=== PATIENT | female | born 1940 | race Caucasian/White ===

== ENCOUNTER 2022-05-23 11:07 | Emergency (ER) | payer MEDICARE, SELFPAY ==
[2022-05-23 11:13] VITALS: BP 123/60; PULSE 70; RESP 18; TEMP 36.8; O2SAT 98
--- NOTE | 2022-05-23 12:16 | DI.CT_ITS ---
Exam(s) CT LUMBAR SPINE RECONS CT ABDOMEN PELVIS WO EXAM: CT ABDOMEN PELVIS WO CLINICAL HISTORY: Constipation, trauma, right back pain. TECHNIQUE: Imaging Protocol: Axial computed tomography images with coronal and sagittal reformatted images were created and reviewed. Axial, coronal and sagittal reconstructions of the lumbar spine wer e also performed utilizing bone algorithm. Oral: yes 50 cc Omnipaque. COMPARISON: CT CT LUMBAR SPINE RECONS from 05/23/2022 FINDINGS: ABDOMEN: Lung Bases: The heart is mildly enlarged. There is severe coronary artery calcification. There is a small hiatal hernia. The lung bases are clear. Liver: Normal density. No measurable mass. Gallbladder and biliary tract: No radiodense calculus or dilation. Pancreas: Normal density, no abnormal calcifications or inflammatory process. Spleen: Normal. Kidneys: Normal size, contour and axis. Tiny nonobstructing stone lower pole left kidney. No ureter al calculi. Small cysts left kidney. Mild prominence of the renal pelvis, symmetric bilaterally. Adrenal glands: No masses seen. Lymph nodes: Within normal limits. Abdominal Aorta: Abdominal portion non-dilated. 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 Bladder: Partially obscured. No gross wall thickening. Bowel: Mild diverticulosis. Large quantity of stool in the cecum through splenic flexure. Moderate quantity of stool distally. No obstruction or bowel wall thickening. Peritoneal cavity: No ascites, collection or mesenteric inflammatory response. Reproductive organs: Probable prior hysterectomy. Bones: Right hip prosthesis creates artifact in the pelvis. Bones appear osteoporotic. No pelvic frac tures are seen. Lumbar spine CT: The field of view includes T9 through the sacrum. There are degenerative disc changes as well as mild scoliosis. Prominent facet degenerative changes. There is severe spinal stenosis at L4-5 There is a mild compression fracture of T10 which is likely old. There is a mild compression fracture of the superior endplate of L1 which appears acute. Acute fractu re lines are visible. There is also mild compression of the inferior endplate. IMPRESSION: 1. Mild to moderate acute compression fracture of L1. There is no significant retropulsion. 2. Large quantity of stool. Results of this exam have been verbally communicated with the emergency department provider. RADIATION DOSE DELIVERED: Total DLP DATA REPOSITORY: All CT scans at this facility are submitted to the National Radiology Data Registry (NRDR) Dose Index Registry (DIR) with the [employer] (ACR). RADIATION OPTIMIZATION: All CT scans at this facility use at least one of these dose optimization te chniques: automated exposure control; mA and/or kV adjustment per patient size (includes targeted exa ms where dose is matched to clinical indication); or iterative reconstruction.
[2022-05-23 13:00] LABS: Abs Immature Grans 0.02 10^3/uL (0.0-0.06); Absolute Basophil Count 0.04 10^3/uL (0.0-0.2); Absolute Eosinophil Count 0.13 10^3/uL (0.0-0.7); Absolute Lymphocyte Count 3.46 10^3/uL (1.2-3.4); Absolute Monocyte Count 0.75 10^3/uL (0.1-0.8); Basophils % 0.4; Eosinophils % 1.5; HCT 41.7 % (36.0-46.0); HGB 13.7 g/dL (11.2-15.7); Immature Grans % 0.2; Lymphocytes % 38.9; MCH 30.7 pg (27.0-33.0); MCHC 32.9 % (32.0-36.0); MCV 94 fL (80-95); MPV 9.7 fL (8.0-11.0); Monocytes % 8.4; Neutrophils % 50.6; Platelet Count 292 10^3/uL (130-400); RBC 4.46 10^6/uL (3.93-5.22); RDW 13.8 % (11.7-14.6); RDW-SD 46.9 fL
[2022-05-23 13:07] LABS: ALT 29 U/L (14-59); AST 28 U/L (15-37); Albumin 3.2 g/dL (3.4-5.0); Alkaline Phosphatase 177 U/L (46-116); Anion Gap 6.3 mmol/L (3-11); BUN 12 mg/dL (7-18); Bilirubin, Total 0.5 mg/dL (0.2-1.0); CO2 29.7 mmol/L (21.0-32.0); CREATININE 0.8 mg/dL (0.55-1.02); Chloride 99 mmol/L (98-107); Estimated GFR 74.44 (mL/min/1.73m2); Glucose 98 mg/dL (74-106); Magnesium 1.8 mg/dL (1.8-2.4); Potassium 3.8 mmol/L (3.5-5.1); Sodium 135 mmol/L (136-145); Total Protein 8.4 g/dL (6.4-8.2)
--- NOTE | 2022-05-23 15:38 | ED.GENADUL_ITS ---
Discharge Plan Disposition Patient Disposition: HOME Condition: Stable Discharge Details Clinical Impression: Constipation, Compression fracture of L1 vertebra Primary Care Provider: ANGIE PORTER ED Provider: Kee Torres Home Meds and New Rx's Prescriptions: Continued ascorbic acid (vitamin C) [Vitamin C] 500 MG tablet 500 mg PO DAILY vitamin B complex [B-Complex] 1 EACH tablet 1 ea PO DAILY bifidobacteri bifid.and longum [Florajen Bifidoblend] 460 MG capsule 2 tab PO DAILY vit C,P-Ym-kyzlc-lutein-zeaxan [PreserVision AREDS-2] 1 EACH capsule 2 ea PO DAILY cholecalciferol (vitamin D3) 10,000 UNIT tablet 2 tab PO DAILY atorvastatin 20 mg Tablet 20 mg metoprolol succinate 50 mg Tablet Extended Release 24 Hr 50 mg PO clopidogrel [Plavix] 75 mg Tablet 75 mg Eliquis 5 mg Tablet 5 mg Discharge Instructions Instructions: Constipation (ED), Vertebral Compression Fracture (ED) Additional Instructions: Continue to take acetaminophen as needed for back pain. It is very important that you continue to use stool softeners along with laxatives as discussed. Please follow-up with your primary care provider next week for reassessment and continue to stay well-hydrated. Return to the emergency if you have any new or worsening symptoms. Referrals: Christina Coello [[facility]URSE] - 5 days (if not improving) Discharge Data Discharge Date/Time-TO BE ENTERED AT DEPARTURE: 05/23/22 16:07 Medical Decision Making Patient presenting to the emergency department for chief complaint of back pain and constipation. Patient states approximately 3 weeks ago she had a fall which she was seen at another emergency department for and told she might of had an old back fracture found otherwise nothing acute. Patient does report long ongoing history of constipation but this is also seem to worsen after the fall. Patient denies any numbness or tingling, saddle anesthesia, fever chills or urinary symptoms. Physical exam shows tenderness to palpation of the upper lumbar region otherwise unremarkable. Rectal exam was performed with RN copy room technician in the room and patient had intact rectal tone with hard small pieces of stool no obvious blood and otherwise remark unremarkable. Patient does state that she has had ever rectal disimpaction in the past previous to the fall. Did attempt further disimpaction but was not able to remove any further stool except for a small piece. Given that patient is still having significant back pain and GI symptoms will perform CT imaging but I have high suspicion that this is not cauda equina or spinal cord injury but more secondary to low mobilization due to back pain. Reviewed labs which overall none worrisome. Previous records from emergency department visit from other facility were obtained and reviewed results with plain film imaging. Patient shows a concerning finding for an acute compression fracture of L1 and significant amount of stool present but otherwise no other emergent findings noted by radiologist. Did give patient enema which significantly helped with patient's symptoms. She was encouraged to continue staying well-hydrated and return and follow-up precautions were asked. After discussion of diagnosis and plan of care patient has no further needs, questions, or concerns and states clear understanding to return to the emergency department for any worsening symptoms. Imaging Data Radiologic Study: Imaging: CT Scan Radiologist's impression: FINDINGS: ABDOMEN: Lung Bases: The heart is mildly enlarged. There is severe coronary artery calcification. There is a small hiatal hernia. The lung bases are clear. Liver: Normal density. No measurable mass. Gallbladder and biliary tract: No radiodense calculus or dilation. Pancreas: Normal density, no abnormal calcifications or inflammatory process. Spleen: Normal. Kidneys: Normal size, contour and axis. Tiny nonobstructing stone lower pole left kidney. No ureteral calculi. Small cysts left kidney. Mild prominence of the renal pelvis, symmetric bilaterally. Adrenal glands: No masses seen. Lymph nodes: Within normal limits. Abdominal Aorta: Abdominal portion non-dilated. 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 Bladder: Partially obscured. No gross wall thickening. Bowel: Mild diverticulosis. Large quantity of stool in the cecum through splenic flexure. Moderate quantity of stool distally. No obstruction or bowel wall thickening. Peritoneal cavity: No ascites, collection or mesenteric inflammatory response. Reproductive organs: Probable prior hysterectomy. Bones: Right hip prosthesis creates artifact in the pelvis. Bones appear osteoporotic. No pelvic fractures are seen. Lumbar spine CT: The field of view includes T9 through the sacrum. There are degenerative disc changes as well as mild scoliosis. Prominent facet degenerative changes. There is severe spinal stenosis at L4-5 There is a mild compression fracture of T10 which is likely old. There is a mild compression fracture of the superior endplate of L1 which appears acute. Acute fracture lines are visible. There is also mild compression of the inferior endplate. IMPRESSION: 1. Mild to moderate acute compression fracture of L1. There is no significant retropulsion. 2. Large quantity of stool. Results of this exam have been verbally communicated with the emergency department provider. Lab Data Lab results reviewed: Yes I reviewed the patient's lab results. HPI General Mode of arrival: ambulatory . Date/Time Provider Initiated Documentation: 05/23/22 11:14 . Limitations to Documentation: no limitations . Information obtained by: patient, family and RN notes reviewed . History of Present Illness 81 year old F presents to the emergency department with the chief complaint of back pain and constipation , described as moderate, with intensity rated at 4. Quality is described as aching, and is localized to the back. Patient reports no radiation. Patient started experiencing this week(s) (3) and it has been constant. Rest improves symptom(s), Movement worsens symptoms . Patient notes no other symptoms.. Patient did receive the following treatments prior to arrival, other (Tylenol) Related Data Home Medications Medication Instructions Recorded Confirmed ascorbic acid (vitamin C) 500 mg 500 mg PO DAILY 10/10/17 10/13/17 tablet (Vitamin C) bifidobacterium bifidum and longum 2 tab PO DAILY 10/10/17 10/13/17 460 mg (9-1 billion cell) capsule (Florajen Bifidoblend) cholecalciferol (vitamin D3) 250 2 tab PO DAILY 10/10/17 10/13/17 mcg (10,000 unit) tablet vit C 250 mg-vit E 90 mg-zinc 40 2 ea PO DAILY 10/10/17 10/13/17 mg-copper 1 cr-ireadn-ukvyfh capsule (PreserVision AREDS-2) vitamin B complex (B-Complex 1 ea PO DAILY 10/10/17 10/13/17 tablet) apixaban 5 mg tablet (Eliquis) 5 mg 05/23/22 atorvastatin 20 mg tablet 20 mg 05/23/22 clopidogrel 75 mg tablet (Plavix) 75 mg 05/23/22 metoprolol succinate 50 mg 50 mg PO 05/23/22 tablet,extended release 24 hr Allergies Allergy/AdvReac Type Severity Reaction Status Date / Time No Known Allergies Allergy Unverified 10/13/17 10:03 General Stated Complaint: Abd Prob CAL: 3 Review of Systems Constitutional Constitutional: Denies chills and Denies fever(s) Cardiovascular Cardiovascular: Denies chest pain and Denies dyspnea on exertion Respiratory Respiratory: Denies cough and Denies dyspnea on exertion Gastrointestinal Gastrointestinal: Denies abdominal pain, Denies change in bowel habits, Reports constipation, Denies diarrhea, Reports nausea, Reports vomiting and Denies hematemesis Genitourinary Genitourinary: Denies urinary incontinence Musculoskeletal Musculoskeletal: Reports as per HPI and Reports back pain Neurologic Neurologic: Denies sensory deficit PFSH All Active Problems (Updated 05/23/22 @ 15:47 by Kee Torres NP) Compression fracture of L1 vertebra (Acute) Constipation (Acute) Social History Smoking/Tobacco Use Status: Former Tobacco Use Smoking risk assessment performed?: Yes Drug use: Never Do you feel safe at home: Yes Do you feel safe in your relationship?: Yes Exam Const General: cooperative and no acute distress Orientation: alert, awake and oriented x3 Neck Neck: normal visual inspection, full ROM and no meningeal signs Resp Effort & Inspection: normal respiratory effort Auscultation: clear to auscultation bilaterally Cardio Rate: regular rate Rhythm: regular rhythm Heart Sounds: S1 normal and S2 normal GI Inspection: normal to inspection Palpation: soft, no aortic enlargement, not firm, no guarding, no masses, no pulsatile masses and nontender Auscultation: normal bowel sounds Back/Spine/Pelvis Thoracic/Lumbar Spine: thoracic and lumbar spine normal to inspection, pain with thoraco-lumbar ROM, paraspinal tenderness, thoraco-lumbar ROM limited and lumbar spinal tenderness Neuro General: patient alert, patient awake and patient oriented x3 DTR's: Rt Patellar: 2+ and Lt Patellar: 2+ Course Vital Signs Vital signs: Vital Signs Temperature 36.8 C 05/23/22 11:13 Pulse 70 05/23/22 11:13 Respiratory Rate 18 05/23/22 11:13 Blood Pressure 123/60 05/23/22 11:13 Pulse Oximetry 98 05/23/22 11:13 Temperature 36.8 C 05/23/22 11:13 Temperature Source Temporal Artery Scan 05/23/22 11:13 Pulse 70 05/23/22 11:13 Respiratory Rate 18 05/23/22 11:13 Respiratory Effort Non-Labored 05/23/22 11:52 Blood Pressure 123/60 05/23/22 11:13 Blood Pressure Position Sitting 05/23/22 11:13 Pulse Oximetry 98 05/23/22 11:13 Oxygen Delivery Method Room Air 05/23/22 11:13 Oxygen Flow Rate 0 05/23/22 11:13 Lab/Test Results Lab/Test Results: Laboratory Tests Range/Units 05/23/22 05/23/22 12:40 12:40 WBC (4.4-10.8) 10^3/uL 8.90 RBC (3.93-5.22) 10^6/uL 4.46 Hgb (11.2-15.7) g/dL 13.7 Hct (36.0-46.0) % 41.7 MCV (80-95) fL 94 MCH (27.0-33.0) pg 30.7 MCHC (32.0-36.0) % 32.9 RDW (11.7-14.6) % 13.8 Plt Count (130-400) 10^3/uL 292 MPV (8.0-11.0) fL 9.7 Immature Gran % 0.2 Neutrophils % 50.6 Lymphocytes % 38.9 Monocytes % 8.4 Eosinophils % 1.5 Basophils % 0.4 Nucleated RBC % (0.0-0.3) % 0.0 Absolute Neutrophils (1.2-6.7) 10^3/uL 4.50 Absolute Lymphocytes (1.2-3.4) 10^3/uL 3.46 H Absolute Monocytes (0.1-0.8) 10^3/uL 0.75 Absolute Eosinophils (0.0-0.7) 10^3/uL 0.13 Absolute Basophils (0.0-0.2) 10^3/uL 0.04 Sodium (136-145) mmol/L 135 L Potassium (3.5-5.1) mmol/L 3.8 Chloride (98-107) mmol/L 99 Carbon Dioxide (21.0-32.0) mmol/L 29.7 Anion Gap (3-11) mmol/L 6.3 BUN (7-18) mg/dL 12 Creatinine (0.55-1.02) mg/dL 0.8 Est GFR (CKD-EPI 2020) (mL/min/1.73m2) 74.44 Glucose (74-106) mg/dL 98 Calcium (8.5-10.1) mg/dL 10.0 Magnesium (1.8-2.4) mg/dL 1.8 Total Bilirubin (0.2-1.0) mg/dL 0.5 AST (15-37) U/L 28 ALT (14-59) U/L 29 Alkaline Phosphatase (46-116) U/L 177 H Total Protein (6.4-8.2) g/dL 8.4 H Albumin (3.4-5.0) g/dL 3.2 L Procedures Rectal Disimpaction Time Out Performed: Yes Indication: fecal impaction Procedural Sedation: No Sedation/Analgesia: none Technique: manual disimpaction with gloved finger Result: unable to disimpact Patient Tolerated Procedure: well and no complications Complications: none
--- NOTE | 2022-05-23 22:07 | NUR.NOTE ---
Referral to Care Management to f/u with PCP Christina Coello in one week for L1 compression fx and constipation.Nursing Note:
--- NOTE | 2022-05-24 09:13 | PDOC.ERCMACT ---
- If Service Date Differs Date of service: 05/24/22 Time of Service: 09:13 Care Management Activity Note Peggy is seen in the ED for a compression fracture. At the request of ED provider, CM contacts patient's PCP ([facility]) to request they schedule patient for a follow up appointment. CM is advised that she has an appointment with Gualberto Alcazar, MSN, REPLEN[employer]MENT BUYER, AGPCNP-BC, today.
== END 2022-05-23 16:07 | disposition home or self-care (01) ==
PROVIDERS: Emergency Provider Nurse Practitioner Family; PCP Nurse Practitioner Primary Care
DX: K59.00 Constipation, unspecified (principal); S32.019A Unspecified fracture of first lumbar vertebra, initial encounter for closed fracture; Z87.891 Personal history of nicotine dependence; W19.XXXA Unspecified fall, initial encounter
CPT/HCPCS: 80053; 99284; 74176; 83735; 85025; 99282

== ENCOUNTER 2024-01-15 10:00 | Emergency (ER) | payer MEDICARE, SELFPAY ==
[2024-01-15] VITALS (9 sets, daily range): BP systolic 106–125; BP diastolic 35–53; PULSE 83–94; RESP 17–24; TEMP 36.5; O2SAT 95–98
[2024-01-15] MEDS: Oxymetazolone 0.05% SPRAY 15 ML BTL (10:25)
--- NOTE | 2024-01-15 10:40 | ED.GENADUL_ITS ---
Discharge Plan Disposition Patient Disposition: Home Condition: Stable Discharge Details Clinical Impression: Epistaxis, recurrent Primary Care Provider: ANGIE PORTER ED Provider: Giancarlo Magana Home Meds and New Rx's Prescriptions: New cephalexin 500 mg capsule 500 mg PO TID Qty: 15 0RF Continued PreserVision AREDS-2 1 EACH capsule 2 ea PO DAILY atorvastatin 20 mg Tablet 20 mg PO DAILY metoprolol succinate 50 mg Tablet Extended Release 24 Hr 50 mg PO DAILY timolol 0.25 % drops 1 drp ophthalmic (eye) BID docusate sodium 100 mg capsule 100 mg PO Q3W Benefiber Sugar Free (dextrin) 3 gram/4 gram powder 1 packet PO DAILY Rx Instructions: mix into at least 4 oz water or juice before administering cranberry fruit 450 mg tablet 450 mg PO DAILY Rx Instructions: administer with a meal cholecalciferol (vitamin D3) [Vitamin D3] 125 mcg (5,000 unit) tablet 125 mcg PO DAILY Held Eliquis 5 mg Tablet 2.5 mg PO BID Hold Instructions: Resume on 01/19/24. aspirin 81 mg capsule 81 mg PO DAILY Hold Instructions: Resume on 01/19/24. Discontinued ascorbic acid (vitamin C) [Vitamin C] 500 MG tablet 500 mg PO DAILY vitamin B complex [B-Complex] 1 EACH tablet 1 ea PO DAILY Florajen Bifidoblend 460 MG capsule 2 tab PO DAILY cholecalciferol (vitamin D3) 10,000 UNIT tablet 1 tab PO DAILY clopidogrel [Plavix] 75 mg Tablet 75 mg PO DAILY Discharge Instructions Instructions: Nosebleed (ED) Additional Instructions: Please follow-up with [facility] on Friday for packing removal. It is recommended that you hold your aspirin and Eliquis until packing removed Friday. Please take antibiotic as prescribed. You were given your first dose here in the emergency department. Your next dose should be this evening. Return to the ER immediately for any worsening or new concerning symptoms. Referrals: ANGIE PORTER [Primary Care Provider] - [facility] General Mode of arrival: ambulatory . Date/Time Provider Initiated Documentation: 01/15/24 10:14 . Limitations to Documentation: no limitations . Information obtained by: patient and family . HPI Narrative: 83-year-old female presents with chief complaint of nosebleed. Patient notes nosebleed started yesterday. She was seen by [facility] and had temporary nasal packing performed. Packing was removed in the office and bleeding is stopped. Bleeding reoccurred this morning and persisted until here in the emergency department. She has no headache. No other symptoms. Patient is on Eliquis and aspirin and she has held dosing today as recommended by [facility] care. Related Data Home Medications Medication Instructions Recorded Confirmed vit C 250 mg-vit E 90 mg-zinc 40 2 ea PO DAILY 10/10/17 01/15/24 mg-copper 1 ah-gvzcei-jdkmbf capsule (PreserVision AREDS-2) apixaban 5 mg tablet (Eliquis) 2.5 mg PO BID 05/23/22 01/15/24 atorvastatin 20 mg tablet 20 mg PO DAILY 05/23/22 01/15/24 metoprolol succinate 50 mg 50 mg PO DAILY 05/23/22 01/15/24 tablet,extended release 24 hr aspirin 81 mg capsule 81 mg PO DAILY 01/15/24 01/15/24 cephalexin 500 mg capsule 500 mg PO TID #15 caps 01/15/24 cholecalciferol (vitamin D3) 125 125 mcg PO DAILY 01/15/24 01/15/24 mcg (5,000 unit) tablet (Vitamin D3) cranberry fruit 450 mg tablet 450 mg PO DAILY 01/15/24 01/15/24 docusate sodium 100 mg capsule 100 mg PO Q3W 01/15/24 01/15/24 timolol 0.25 % eye drops 1 drp ophthalmic (eye) BID 01/15/24 01/15/24 wheat dextrin 3 gram/4 gram oral 1 packet PO DAILY 01/15/24 01/15/24 powder (Benefiber Sugar Free (dextrin)) Previous Rx's Medication Instructions Recorded cephalexin 500 mg capsule 500 mg PO TID #15 caps 01/15/24 Allergies Allergy/AdvReac Type Severity Reaction Status Date / Time No Known Allergies Allergy Unverified 01/15/24 10:12 General Stated Complaint: Epistaxis CAL: 3 Review of Systems ENT Ears, Nose, Mouth, and Throat: Reports as per HPI Exam Const General: cooperative and no acute distress [facility] General nose exam: epistaxis on the right (Clot in the visible posterior nare) dried blood present and source not visualized Mouth: moist mucous membranes Throat: other (Dried blood posterior oropharynx) Eyes Conjunctivae: normal conjunctivae Sclera: normal sclerae EOM: EOM intact bilaterally Neck Neck: trachea midline Cardio Rate: regular rate and not tachycardic Course Vital Signs Vital signs: Vital Signs Temperature 36.5 C 01/15/24 10:06 Pulse 90 01/15/24 10:06 Respiratory Rate 17 01/15/24 10:06 Blood Pressure 116/50 L 01/15/24 10:06 Pulse Oximetry 97 01/15/24 10:06 Temperature 36.5 C 01/15/24 10:06 Temperature Source Skin 01/15/24 10:06 Pulse 90 01/15/24 10:06 Respiratory Rate 17 01/15/24 10:06 Respiratory Effort Normal, Non-Labored 01/15/24 10:11 Blood Pressure 116/50 L 01/15/24 10:06 Blood Pressure Position Sitting 01/15/24 10:06 Pulse Oximetry 97 01/15/24 10:06 Oxygen Delivery Method Room Air 01/15/24 10:06 Oxygen Flow Rate 0 01/15/24 10:06 Pain Level 0 01/15/24 10:06 Medical Decision Making 83-year-old female here with epistaxis, on Eliquis and aspirin, started yesterday was initially treated at [facility], now reoccurring this morning. Patient is hemodynamically stable. I had the patient blow her nose and attempt to clear visible clot. Could not identify source of bleeding. Afrin nasal spray administered. Rhino Rocket 7.5 cm placed without complication after informed consent. Bleeding is stopped. I spoke with Dr. Moreira, on-call ENT, discussed ED presentation course, he recommends having patient follow-up with [facility] on Friday for packing removal. He recommends holding Eliquis and aspirin until after packing removed. He notes that if [facility] is any difficulty with packing removal he be happy to see the patient. Plan discussed with patient and family. Family requesting cardiology involvement given recommendation to hold Eliquis. 1115 --I spoke with Dr. Ellison, discussed ED presentation course, she agrees with holding Eliquis until Friday and felt this was very reasonable. Plan discussed with patient and family. Usual and customary discharge instructions were reviewed. Quality:SDOH Health Related Social Needs: No Data to Display PFSH All Active Problems (Updated 01/15/24 @ 10:53 by Giancarlo Magana MD) Epistaxis, recurrent (Acute) Social History Smoking/Tobacco Use Status: Former Tobacco Use Smoking risk assessment performed?: Yes Drug use: Never Substance use type: does not use Do you feel safe at home: Yes Do you feel safe in your relationship?: Yes
[2024-01-15] MEDS: Cephalexin 500 MG CAP PO (11:31)
== END 2024-01-15 11:39 | disposition home or self-care (01) ==
LOC: ER 11:30
PROVIDERS: Emergency Provider Student in an Organized Health Care Education/Training Program; PCP Nurse Practitioner Primary Care
DX: R04.0 Epistaxis (principal); Z79.01 Long term (current) use of anticoagulants; Z79.02 Long term (current) use of antithrombotics/antiplatelets; Z79.82 Long term (current) use of aspirin; Z87.891 Personal history of nicotine dependence
CPT/HCPCS: 30901; 99283

== ENCOUNTER 2024-03-01 19:09 | Outpatient (REF) | payer MEDICARE, SELFPAY ==
[2024-03-01 19:42] LABS: Bacteria Rare HPF (Negative); C & S Indicated? C&S Done As Ordered; Casts Negative LPF (Negative); Crystals Negative HPF (Negative); Epithelial Cells Many HPF (Negative); Mucus Negative (Negative); RBC >50 HPF (0-2); WBC 20-50 HPF (0-5)
== END 2024-03-01 19:10 | disposition home or self-care (01) ==
LOC: LBN 19:09
PROVIDERS: PCP Nurse Practitioner Primary Care; Visit Provider Nurse Practitioner Family
DX: R30.0 Dysuria (principal)
CPT/HCPCS: 81003; 81015; 87086

== ENCOUNTER 2024-06-08 15:05 | Emergency (ER) | payer MEDICARE, SELFPAY ==
--- NOTE | 2024-06-08 15:00 | RT.EKG_ITS ---
APPROVED REPORT Exam: Resting ECG Reason for Exam: [facility] Patient Location: E HR:106 bpm ECG Measurements Heart Rate 106 AXIS WA [id number] P [id number] QRSd 80 QRS -10 QT 319 T 9 QTc 425 Conclusion Atrial fibrillation...? atrial activity
[2024-06-08 15:05] VITALS: BP 121/65; PULSE 65; RESP 18; TEMP 37; O2SAT 94
--- NOTE | 2024-06-08 15:30 | DI.RAD_ITS ---
Exam(s) XR CHEST 2V PA LATERAL EXAM: XR CHEST 2V PA LATERAL CLINICAL HISTORY: ?pneumonia TECHNIQUE: 2D digital imaging was performed. Two views. COMPARISON: No exams were available for comparison FINDINGS: Exam is limited by under penetration HEART: Enlarged Aorta: Mildly tortuous PULMONARY VASCULATURE: Normal. MEDIASTINUM: Unremarkable. LUNGS: No gross area of consolidation. Question of diffuse mild bilateral patchy infiltrates. Incre ased interstitial markings. PLEURAL SPACE: No pleural effusion or pneumothorax. BONE:Old bilateral rib fractures. SOFT TISSUES: Unremarkable. IMPRESSION: Question bilateral patchy infiltrates. Underlying interstitial changes. DATA REPOSITORY: RADIATION DOSE DELIVERED:
--- NOTE | 2024-06-08 15:42 | ED.GENADUL_ITS ---
Discharge Plan Disposition Patient Disposition: Home Condition: Stable Discharge Details Clinical Impression: Fatigue, Weakness, Acute UTI Primary Care Provider: ANGIE PORTER ED Provider: Keo Gabriel Home Meds and New Rx's Prescriptions: New cefpodoxime 100 mg tablet 100 mg PO BID Qty: 14 0RF Rx Instructions: must administer with a meal/food Continued PreserVision AREDS-2 1 EACH capsule 2 ea PO DAILY atorvastatin 20 mg Tablet 20 mg PO DAILY metoprolol succinate 50 mg Tablet Extended Release 24 Hr 50 mg PO DAILY Eliquis 5 mg Tablet 2.5 mg PO BID aspirin 81 mg capsule 81 mg PO DAILY timolol 0.25 % drops 1 drp ophthalmic (eye) BID docusate sodium 100 mg capsule 100 mg PO Q3W Benefiber Sugar Free (dextrin) 3 gram/4 gram powder 1 packet PO DAILY Rx Instructions: mix into at least 4 oz water or juice before administering cranberry fruit 450 mg tablet 450 mg PO DAILY Rx Instructions: administer with a meal cholecalciferol (vitamin D3) [Vitamin D3] 125 mcg (5,000 unit) tablet 125 mcg PO DAILY cephalexin 500 mg capsule 500 mg PO TID Qty: 15 0RF Discharge Instructions Additional Instructions: Your workup today showed negative urinary tract infection Follow-up with your primary care provider within 1 to 2 weeks If you feel more ill, have high fevers or difficulty breathing return to the emergency department for reevaluation HPI General Mode of arrival: EMS . Date/Time Provider Initiated Documentation: 06/08/24 15:07 . Information obtained by: patient and family . History of Present Illness 83 year old F presents to the emergency department with the chief complaint of no appetitie, fatigue, Patient started experiencing this day(s) (1) and it has been constant. No relieving factors improve symptom(s), No exacerbating factors reported . Patient notes denies chest pain, fever/chills and shortness of breath. Patient did receive the following treatments prior to arrival, none Related Data Home Medications ?Medication ?Instructions ?Recorded ?Confirmed vit C 250 mg-vit E 90 mg-zinc 40 2 ea PO DAILY 10/10/17 01/15/24 mg-copper 1 [id number] capsule (PreserVision AREDS-2) apixaban 5 mg tablet (Eliquis) 2.5 mg PO BID 05/23/22 01/15/24 atorvastatin 20 mg tablet 20 mg PO DAILY 05/23/22 01/15/24 metoprolol succinate 50 mg 50 mg PO DAILY 05/23/22 01/15/24 tablet,extended release 24 hr aspirin 81 mg capsule 81 mg PO DAILY 01/15/24 01/15/24 cephalexin 500 mg capsule 500 mg PO TID #15 caps 01/15/24 cholecalciferol (vitamin D3) 125 125 mcg PO DAILY 01/15/24 01/15/24 mcg (5,000 unit) tablet (Vitamin D3) cranberry fruit 450 mg tablet 450 mg PO DAILY 01/15/24 01/15/24 docusate sodium 100 mg capsule 100 mg PO Q3W 01/15/24 01/15/24 timolol 0.25 % eye drops 1 drp ophthalmic (eye) BID 01/15/24 01/15/24 wheat dextrin 3 gram/4 gram oral 1 packet PO DAILY 01/15/24 01/15/24 powder (Benefiber Sugar Free (dextrin)) cefpodoxime 100 mg tablet 100 mg PO BID #14 tabs 06/08/24 Previous Rx's ?Medication ?Instructions ?Recorded cephalexin 500 mg capsule 500 mg PO TID #15 caps 01/15/24 cefpodoxime 100 mg tablet 100 mg PO BID #14 tabs 06/08/24 Allergies Allergy/AdvReac Type Severity Reaction Status Date / Time No Known Allergies Allergy Unverified 01/15/24 10:12 General Stated Complaint: AMS/LOC CAL: 3 Review of Systems All systems reviewed & are unremarkable except as noted in HPI and below Constitutional Constitutional: Denies chills, Reports fatigue and Denies fever(s) Cardiovascular Cardiovascular: Denies chest pain and Denies dyspnea Respiratory Respiratory: Denies cough and Denies dyspnea Gastrointestinal Gastrointestinal: Denies abdominal pain, Denies nausea and Denies vomiting Integumentary/Breasts Skin/Breast: Denies rash Endocrine Endocrine: Reports fatigue Exam Const General: no acute distress Orientation: alert [facility] Head: normal to inspection Ears: external ears normal General nose exam: external nose normal Mouth: moist mucous membranes Eyes General: appearance normal, both eyes and all related structures Neck Neck: normal visual inspection Resp Effort & Inspection: normal respiratory effort and able to speak in complete sentences Auscultation: clear to auscultation bilaterally Cardio Jugular venous pressure: no JVD Rate: regular rate Heart Sounds: no murmurs GI Palpation: soft and nontender Skin General skin exam: no rashes or lesions noted Neuro General: patient alert and patient oriented x3 Extrem General: normal to inspection Psych Mental Status: mental status grossly normal Course Vital Signs Vital signs: Vital Signs Temperature 37.0 C 06/08/24 15:05 Pulse 65 06/08/24 15:05 Respiratory Rate 18 06/08/24 15:05 Blood Pressure 121/65 06/08/24 15:05 Pulse Oximetry 94 06/08/24 15:05 Temperature 37.0 C 06/08/24 15:05 Temperature Source Tympanic 06/08/24 15:05 Pulse 65 06/08/24 15:05 Respiratory Rate 18 06/08/24 15:05 Blood Pressure 121/65 06/08/24 15:05 Pulse Oximetry 94 06/08/24 15:05 Oxygen Delivery Method Room Air 06/08/24 15:05 Oxygen Flow Rate 0 06/08/24 15:05 Medical Decision Making 83-year-old female with history of hyperlipidemia and A-fib who resides at [facility] comes in with 1 day of general fatigue and lack of appetite. Apparently she has had some intermittent confusion as well. She is alert and oriented on arrival here, does appear mildly fatigued. She denies any headache, chest pain, difficulty breathing, abdominal pain. She has no focal neurological deficits on exam. Clear lungs soft nontender abdomen. Given her age and complaints of general fatigue we will check a CBC to evaluate for anemia and evaluate for electrolyte abnormalities with a CMP. Given she has no chest pain or difficulty breathing do not feel cardiac workup indicated. She is anticoagulated per chart review so we will obtain CT head to exclude hemorrhage of the brain. This seems unlikely though given lack of headache. No focal neurological deficits to suggest CVA, will check a chest x-ray to evaluate for pneumonia though this does seem unlikely given lack of cough and fevers and also check a UA. UA is consistent with UTI, ceftriaxone ordered, has mild leukocytosis otherwise no acute findings on labs. CT head unremarkable, chest x-ray read as possible bilateral infiltrates, I did add on a CT renal colic to exclude infected stone and there is no obstructing stone. This patient has no cough, no fever no oxygen requirement so doubt pneumonia. Patient feels well and requesting discharge, given reassuring workup feel this is reasonable. She is given 1 dose of ceftriaxone here, will discharge on cefpodoxime. She will follow-up with her PCP and return precautions given Differential Diagnosis Differential Diagnosis: Anemia, electrolyte abnormality, UTI Imaging Data Radiologic Study: Attestation: I personally reviewed and interpreted this imaging study as follows: Imaging: X-Ray Radiologist's impression: IMPRESSION: Question bilateral patchy infiltrates. Underlying interstitial changes. Radiologic Study #2: Attestation: I personally reviewed and interpreted this imaging study as follows: Imaging: CT Scan Radiologist's impression: Patient Name: Peggy Nguyễn Unit #: [id number] Loc: ER Ordering Provider: Keo Gabriel M.D. Status: REG ER Primary Care Provider: ANGIE PORTER Date of Exam: 06/08/24 Sex: F : 1940 Age: 83 Exam(s) a CT:CT head wo Exam(s) CT HEAD WO EXAM: CT HEAD WO CLINICAL HISTORY: general weakness. TECHNIQUE: Imaging Protocol: Axial computed tomography images with coronal and sagittal reformatted images were created and reviewed COMPARISON: No exams were available for comparison FINDINGS: Ventricles and Extra axial spaces: Normal in size and morphology for the patient's age. Hemorrhage: None. Cerebral parenchyma: No evidence of acute infarct or mass. Midline shift: None. Brainstem/Cerebellum: Normal. Calvarium: Hyperostosis frontalis interna. No evidence of fracture Visualized Paranasal sinuses:Left maxillary sinus is completely opacified. Mastoids: Clear. Soft Tissues: Unremarkable. ORBITS: Unremarkable. PITUITARY: Not enlarged. IMPRESSION: No acute intracranial process. Radiologic Study #3: Attestation: I personally reviewed and interpreted this imaging study as follows: Imaging: CT Scan Radiologist's impression: IMPRESSION: Tiny nonobstructing stone lower pole left kidney, unchanged from prior exam. No evidence of hydronephrosis or ureteral calculus. No acute abnormality in the abdomen or pelvis. . Patchy infiltrates at the lung bases could indicate pneumonitis. Clinical correlation recommended. Lab Data Lab results reviewed: Yes I reviewed the patient's lab results. ECG Data Attestation: I personally reviewed and interpreted this ECG (s) as follows: Prior ECG tracings: not available for review Interpretation: A-fib, rate of 106, no STEMI Quality:SDOH Health Related Social Needs: No Data to Display PFSH All Active Problems (Updated 06/08/24 @ 18:09 by Keo Gabriel MD) Acute UTI (Acute) Weakness (Acute) Fatigue (Acute) Social History Smoking/Tobacco Use Status: Former Tobacco Use Smoking risk assessment performed?: Yes Drug use: Never Substance use type: does not use Do you feel safe at home: Yes Do you feel safe in your relationship?: Yes
[2024-06-08 16:02] LABS: Bilirubin Negative (Negative); Blood Large (Negative); Clarity Cloudy (Clear); Glucose Negative (Negative); Ketones Negative (Negative); Leukocyte Esterase Small (Negative); Nitrite Negative (Negative); Urobilinogen 0.2 mg/dL (Up to 0.2); pH 6.5 (5-8)
[2024-06-08 16:03] LABS: BE (Venous) 0 mmol/L (-2-3); HCO3 (Venous) 24 mmol/L (23-28); O2 Sat (Venous) 63 %; TCO2 (Venous) 22 mmol/L (24-29); pCO2 (Venous) 37 mmHg (41-51); pH (Venous) 7.42 (7.31-7.41); pO2 (Venous) 32 mmHg
[2024-06-08 16:05] LABS: Abs Immature Grans 0.03 10^3/uL (0.0-0.06); Absolute Basophil Count 0.05 10^3/uL (0.0-0.2); Absolute Eosinophil Count 0.04 10^3/uL (0.0-0.7); Absolute Lymphocyte Count 1.31 10^3/uL (1.2-3.4); Absolute Monocyte Count 0.91 10^3/uL (0.1-0.8); Absolute Neutrophil Count 9.37 10^3/uL (1.2-6.7); Basophils % 0.4 %; Eosinophils % 0.3 %; Immature Grans % 0.3 %; Lymphocytes % 11.2 %; MCH 30.8 pg (27.0-33.0); MCHC 33.3 % (32.0-36.0); MCV 92 fL (80-95); MPV 9.2 fL (8.0-11.0); Monocytes % 7.8 %; Platelet Count 232 10^3/uL (130-400); RBC 4.55 10^6/uL (3.93-5.22); RDW 14.5 % (11.7-14.6); RDW-SD 49.4 fL; WBC 11.71 10^3/uL (4.4-10.8)
[2024-06-08] MEDS: Normal Saline 250 ML 500 ML IV (16:12)
[2024-06-08 16:15] LABS: Epithelial Cells Few HPF (Negative); RBC >50 HPF (0-2)
[2024-06-08 16:16] LABS: Bacteria Rare HPF (Negative); C & S Indicated? Yes; Casts Negative LPF (Negative); Crystals Negative HPF (Negative); Mucus Negative (Negative)
[2024-06-08 16:24] LABS: INR 1.2 (0.9-1.1); PTT Activated 29.8 sec (23.6-32.8); Prothrombin Time 11.8 sec (9.1-11.1)
[2024-06-08 16:37] LABS: ALT 27 U/L (14-59); AST 28 U/L (15-37); Albumin 2.9 g/dL (3.4-5.0); Alkaline Phosphatase 113 U/L (46-116); BUN 16 mg/dL (7-18); CO2 24.8 mmol/L (21.0-32.0); CREATININE 0.9 mg/dL (0.55-1.02); Calcium 9.5 mg/dL (8.5-10.1); Estimated GFR 63.83 (mL/min/1.73m2); Glucose 149 mg/dL (74-106); Magnesium 1.7 mg/dL (1.8-2.4); Total Protein 8.3 g/dL (6.4-8.2)
[2024-06-08 16:58] LABS: Anion Gap 9.2 mmol/L (3-11); Chloride 102 mmol/L (98-107); Potassium 3.9 mmol/L (3.5-5.1); Sodium 136 mmol/L (136-145)
--- NOTE | 2024-06-08 17:15 | DI.CT_ITS ---
Exam(s) CT HEAD WO EXAM: CT HEAD WO CLINICAL HISTORY: general weakness. TECHNIQUE: Imaging Protocol: Axial computed tomography images with coronal and sagittal reformatted images were created and reviewed COMPARISON: No exams were available for comparison FINDINGS: Ventricles and Extra axial spaces: Normal in size and morphology for the patient's age. Hemorrhage: None. Cerebral parenchyma: No evidence of acute infarct or mass. Midline shift: None. Brainstem/Cerebellum: Normal. Calvarium: Hyperostosis frontalis interna. No evidence of fracture Visualized Paranasal sinuses:Left maxillary sinus is completely opacified. Mastoids: Clear. Soft Tissues: Unremarkable. ORBITS: Unremarkable. PITUITARY: Not enlarged. IMPRESSION: No acute intracranial process. RADIATION DOSE DELIVERED: Total DLP DATA REPOSITORY: All CT scans at this facility are submitted to the National Radiology Data Registry (NRDR) Dose Index Registry (DIR) with the [employer] (ACR). RADIATION OPTIMIZATION: All CT scans at this facility use at least one of these dose optimization te chniques: automated exposure control; mA and/or kV adjustment per patient size (includes targeted exa ms where dose is matched to clinical indication); or iterative reconstruction.
--- NOTE | 2024-06-08 17:16 | DI.CT_ITS ---
Exam(s) CT RENAL COLIC WO EXAM: CT RENAL COLIC WO CLINICAL HISTORY: ?kidney stone. TECHNIQUE: Imaging Protocol: Axial computed tomography images with coronal and sagittal reformatted images were created and reviewed. CONTRAST MATERIAL: Noncontrast COMPARISON: CT CT ABDOMEN PELVIS WO from 05/23/[address] LUMBAR SPINE RECONS from 05/23/2022 FINDINGS: ABDOMEN: Lung Bases: Small hiatal hernia. Interstitial changes at the lung bases. Diffuse patchy infiltrates . Heart is enlarged. Liver: Normal attenuation. No measurable mass. Gallbladder and biliary tract: No radiodense calculus or dilation. Pancreas: Normal density, no calcifications or inflammatory process. Spleen: Normal. Kidneys: Normal size, contour and axis. No obstructive uropathy. Simple renal cysts. No follow-up r ecommended. Tiny nonobstructing stone lower pole left kidney. No suspicious masses seen. Adrenal glands: No masses seen. Abdominal Aorta: Abdominal portion non-dilated. Atherosclerotic changes. Soft tissues: Unremarkable. PELVIS: Bladder: Symmetric distention, no gross wall thickening. No evidence of stones.No visible mass. Bowel: No obstruction or bowel wall thickening. Diverticulosis of the descending and sigmoid colon. No evidence of diverticulitis. Reproductive: Unremarkable. Status post hysterectomy. Pelvic floor insufficiency. Peritoneal cavity: No ascites, collection or mesenteric inflammatory response. Bones: Right hip prosthesis. Degenerative changes in the spine and left hip. Stable compression fra ctures of T10, T12 and L1. IMPRESSION: Tiny nonobstructing stone lower pole left kidney, unchanged from prior exam. No evidence of hydronep hrosis or ureteral calculus. No acute abnormality in the abdomen or pelvis. . Patchy infiltrates at the lung bases could indicate pneumonitis. Clinical correlation recommended. RADIATION DOSE DELIVERED: Total DLP DATA REPOSITORY: All CT scans at this facility are submitted to the National Radiology Data Registry (NRDR) Dose Index Registry (DIR) with the [employer] (ACR). RADIATION OPTIMIZATION: All CT scans at this facility use at least one of these dose optimization te chniques: automated exposure control; mA and/or kV adjustment per patient size (includes targeted exa ms where dose is matched to clinical indication); or iterative reconstruction.
[2024-06-08 17:27] LABS: Procalcitonin 0.3 ng/mL
[2024-06-08] MEDS: cefTRIAXone 2 GM/50 ML BAG IVPB (17:34)
[2024-06-08 18:25] VITALS: BP 139/57; PULSE 94; RESP 25; O2SAT 94
[2024-06-08 18:32] VITALS: RESP 16
--- NOTE | 2024-06-10 12:34 | NUR.NOTE ---
Accessed Pt chart to obtain the antibiotic given.
== END 2024-06-08 18:29 | disposition home or self-care (01) ==
PROVIDERS: Emergency Provider Emergency Medicine; PCP Nurse Practitioner Primary Care
DX: R53.1 Weakness (principal); R53.83 Other fatigue; N39.0 Urinary tract infection, site not specified; Z79.01 Long term (current) use of anticoagulants
CPT/HCPCS: 80053; 82805; 84145; 87637; 93005; 96374; 99285; 70450; 71046; 74176; 81003; 81015; 83735; 85025; 85610; 85730; 87086; 93010; 99284; J0696

== ENCOUNTER 2024-08-24 13:42 | Emergency (ER) | payer MEDICARE, SELFPAY ==
[2024-08-24 13:45] VITALS: BP 108/69; PULSE 88; RESP 18; TEMP 36.5; O2SAT 96
--- NOTE | 2024-08-24 14:28 | DI.RAD_ITS ---
Exam(s) XR ANKLE LT COMPLETE EXAM: XR ANKLE LT COMPLETE CLINICAL HISTORY: L ankle fracture TECHNIQUE: 2D digital imaging was performed. Three views. COMPARISON: No exams were available for comparison FINDINGS: BONES: Nondisplaced fracture through the lateral malleolus extending to the level of the mortise. No distal tibial fracture is seen. No bony destructive lesion is seen. JOINTS:The ankle mortise is normally aligned. SOFT TISSUE: Marked swelling around the ankle. IMPRESSION: Nondisplaced fracture of the lateral malleolus. No distal tibial fracture or mortise widening is john ntified. DATA REPOSITORY: RADIATION DOSE DELIVERED:
--- NOTE | 2024-08-24 14:33 | ED.GENADUL_ITS ---
Discharge Plan Disposition Patient Disposition: Home Condition: Stable Discharge Details Clinical Impression: Fracture of distal end of left fibula Primary Care Provider: ANGIE PORTER ED Provider: David Puckett Home Meds and New Rx's Prescriptions: Continued PreserVision AREDS-2 1 EACH capsule 2 ea PO DAILY atorvastatin 20 mg Tablet 20 mg PO DAILY metoprolol succinate 50 mg Tablet Extended Release 24 Hr 50 mg PO DAILY Eliquis 5 mg Tablet 2.5 mg PO BID aspirin 81 mg capsule 81 mg PO DAILY timolol 0.25 % drops 1 drp ophthalmic (eye) BID docusate sodium 100 mg capsule 100 mg PO Q3W Benefiber Sugar Free (dextrin) 3 gram/4 gram powder 1 packet PO DAILY Rx Instructions: mix into at least 4 oz water or juice before administering cranberry fruit 450 mg tablet 450 mg PO DAILY Rx Instructions: administer with a meal cholecalciferol (vitamin D3) [Vitamin D3] 125 mcg (5,000 unit) tablet 125 mcg PO DAILY cephalexin 500 mg capsule 500 mg PO TID Qty: 15 0RF cefpodoxime 100 mg tablet 100 mg PO BID Qty: 14 0RF Rx Instructions: must administer with a meal/food Discharge Instructions Instructions: Lower Leg Fracture ED Additional Instructions: You were seen in the emergency department for your known ankle fracture, we have updated your x-ray and provided you a walking boot, please use partial weightbearing as tolerated, rest, ice, compress and elevate, take regular doses of Tylenol. You may follow-up with our orthopedics if desired or you may keep your appointment at [facility], please return to the emergency department for any emergent concerns. Referrals: [facility] [Provider Group] ANGIE PORTER [Primary Care Provider] - Discharge Data Discharge Date/Time-TO BE ENTERED AT DEPARTURE: 08/24/24 15:21 HPI General Date/Time Provider Initiated Documentation: 08/24/24 13:43 . HPI Narrative: 83 year-old female presents to ED today by POV/ambulating with a chief complaint of known left ankle fracture seen at [facility] but not placed in a walking boot with onset on 08/19. Quality described as just wants a walking boot, no radiation to numbness/tingling, has been able to ambulate, intermittent wheelchair use. Severity is described as moderate. Palliating factors include has it radha wrapped, unclear why they do not have a boot from [employer]. Provoking factors include nothing specific- walking. Events leading up to the incident/Associated Symptoms: Patient may wish to pursue ortho follow-up here at [facility]. Patient not anticoagulated. Related Data Home Medications ?Medication ?Instructions ?Recorded ?Confirmed vit C 250 mg-vit E 90 mg-zinc 40 2 ea PO DAILY 10/10/17 08/24/24 mg-copper 1 [id number]-ksmndi capsule (PreserVision AREDS-2) apixaban 5 mg tablet (Eliquis) 2.5 mg PO BID 05/23/22 08/24/24 atorvastatin 20 mg tablet 20 mg PO DAILY 05/23/22 08/24/24 metoprolol succinate 50 mg 50 mg PO DAILY 05/23/22 08/24/24 tablet,extended release 24 hr aspirin 81 mg capsule 81 mg PO DAILY 01/15/24 08/24/24 cephalexin 500 mg capsule 500 mg PO TID #15 caps 01/15/24 08/24/24 cholecalciferol (vitamin D3) 125 125 mcg PO DAILY 01/15/24 08/24/24 mcg (5,000 unit) tablet (Vitamin D3) cranberry fruit 450 mg tablet 450 mg PO DAILY 01/15/24 08/24/24 docusate sodium 100 mg capsule 100 mg PO Q3W 01/15/24 08/24/24 timolol 0.25 % eye drops 1 drp ophthalmic (eye) BID 01/15/24 08/24/24 wheat dextrin 3 gram/4 gram oral 1 packet PO DAILY 01/15/24 08/24/24 powder (Benefiber Sugar Free (dextrin)) cefpodoxime 100 mg tablet 100 mg PO BID #14 tabs 06/08/24 08/24/24 Previous Rx's ?Medication ?Instructions ?Recorded cephalexin 500 mg capsule 500 mg PO TID #15 caps 01/15/24 cefpodoxime 100 mg tablet 100 mg PO BID #14 tabs 06/08/24 Allergies Allergy/AdvReac Type Severity Reaction Status Date / Time No Known Allergies Allergy Unverified 08/24/24 13:49 General Stated Complaint: Orthopedic CAL: 4 Review of Systems All systems reviewed & are unremarkable except as noted in HPI and below Exam Narrative Exam Narrative: GENERAL APPEARANCE: Well-nourished, non-toxic, awake and alert, atraumatic, no acute distress. SKIN: Warm, pink, dry, intact, without rashes/lesions/ulcerations. HEAD: Normocephalic, atraumatic, normal hair distribution for gender/age. EYES: Normal conjunctiva, no exudates on lids/lashes. ENT: Nares patent, no circumoral cyanosis, no facial swelling NECK: Supple, trachea midline, painless cervical ROM. LUNGS/CHEST: Non-labored respirations, normal A/P diameter, symmetrical expansion, no chest wall deformity HEART (CV/PV): No peripheral edema, no JVD. ABDOMEN: Soft, non-distended, no guarding. MSK: Normal ROM, no swelling/deformity to bilateral UEs or LEs, moving all extremities without weakness, no cyanosis, spine midline without tenderness, normal curvature, L ankle tenderness, L dorsalis pedis pulse 2+, no deformity, no ecchymosis NEURO: Mental Status AAOx4 - alert to person, place, time, events No facial droop, no forehead involvement. Motor: No focal weakness - strength 5/5 in bilateral UEs and LEs, proximal and distal, symmetric. Sensory: sensation intact to light touch globally. Gait NT. PSYCH: euthymic, cooperative, pleasant, appropriate speech Course Vital Signs Vital signs: Vital Signs Temperature 36.5 C 08/24/24 13:45 Pulse 88 08/24/24 13:45 Respiratory Rate 18 08/24/24 13:45 Blood Pressure 108/69 08/24/24 13:45 Pulse Oximetry 96 08/24/24 13:45 Temperature 36.5 C 08/24/24 13:45 Temperature Source Temporal Artery Scan 08/24/24 13:45 Pulse 88 08/24/24 13:45 Respiratory Rate 18 08/24/24 13:45 Blood Pressure 108/69 08/24/24 13:45 Blood Pressure Position Sitting 08/24/24 13:45 Pulse Oximetry 96 08/24/24 13:45 Oxygen Delivery Method Room Air 08/24/24 13:45 Oxygen Flow Rate 0 08/24/24 13:45 Medical Decision Making This dictation utilizes [id number] dictation software and may contain unedited grammatical errors. 83 year-old female presents to ED today by POV/ambulating with a chief complaint of known left ankle fracture seen at [facility] but not placed in a walking boot with onset on 08/19. Quality described as just wants a walking boot, no radiation to numbness/tingling, has been able to ambulate, intermittent wheelchair use. Severity is described as moderate. Palliating factors include has it radha wrapped, unclear why they do not have a boot from [facility]. Provoking factors include nothing specific- walking. Events leading up to the incident/Associated Symptoms: Patient may wish to pursue ortho follow-up here at [facility]. Patients' medical history: Noncontributory. Family and social history: Lives at [facility]. Pertinent exam findings / vital signs include tenderness diffusely left ankle without severe swelling or bruising, neurovascular intact distal. Differential / pathologies of concern include fracture. Diagnostic studies of: -X-ray left ankle obtained to ensure house providing the proper splint shows nondisplaced distal fibula fracture. Interventions of: -Provided walking boot. ED Course/Assessment/Plan: Counseled the patient on walking boot, RICE therapy, therapeutic dosing of Tylenol, they may pursue following up with our orthopedics department if they wish but they do have an appointment with [facility] orthopedics already. Findings not consistent with neurovascular compromise. Disposition of fracture of distal end of left fibula. Patient verbalized understanding of the plan and return to ED criteria and engaged in shared decision making. Medical Records Medical records reviewed: Yes I reviewed the patient's medical records. Imaging Data Radiologic Study: Attestation: I personally reviewed and interpreted this imaging study as follows: Imaging: X-Ray Radiologist's impression: EXAM: XR ANKLE LT COMPLETE CLINICAL HISTORY: L ankle fracture TECHNIQUE: 2D digital imaging was performed. Three views. COMPARISON: No exams were available for comparison FINDINGS: BONES: Nondisplaced fracture through the lateral malleolus extending to the level of the mortise. No distal tibial fracture is seen. No bony destructive lesion is seen. JOINTS:The ankle mortise is normally aligned. SOFT TISSUE: Marked swelling around the ankle. IMPRESSION: Nondisplaced fracture of the lateral malleolus. No distal tibial fracture or mortise widening is identified. Quality:SDOH Health Related Social Needs: No Data to Display PFSH All Active Problems (Updated 08/24/24 @ 14:56 by JUSTIN Orourke) Fracture of distal end of left fibula (Acute) Social History Smoking/Tobacco Use Status: Former Tobacco Use Smoking risk assessment performed?: Yes Alcohol Intake: never Drug use: Never Substance use type: does not use Housing: assisted living facility Do you feel safe at home: Yes Do you feel safe in your relationship?: Yes
[2024-08-24 15:21] VITALS: BP 135/68; PULSE 78; RESP 16; TEMP 37; O2SAT 98
--- NOTE | 2024-08-30 11:58 | NUR.NOTE ---
Access chart to print the provider note for [facility] for billing purposes. Nursing Note:
== END 2024-08-24 15:21 | disposition home or self-care (01) ==
PROVIDERS: Emergency Provider Physician Assistant; PCP Nurse Practitioner Primary Care
DX: S82.65XD Nondisplaced fracture of lateral malleolus of left fibula, subsequent encounter for closed fracture with routine healing (principal); Z79.01 Long term (current) use of anticoagulants; Z79.82 Long term (current) use of aspirin; W01.0XXD Fall on same level from slipping, tripping and stumbling without subsequent striking against object, subsequent encounter; Z87.891 Personal history of nicotine dependence
CPT/HCPCS: 99283; 73610

== ENCOUNTER 2024-08-31 11:16 | Outpatient (CLI) | payer MEDICARE, SELFPAY ==
--- NOTE | 2024-08-31 09:45 | DI.RAD_ITS ---
Exam(s) XR ANKLE LT COMPLETE EXAM: XR ANKLE LT COMPLETE CLINICAL HISTORY: F/U FRACTURE TECHNIQUE: 2D digital imaging was performed. Three views. COMPARISON: CR XR ANKLE LT COMPLETE from 08/24/2024 FINDINGS: BONES: Nondisplaced fracture of the distal fibula is again noted. The fracture set extends to the le faizan of the ankle mortise. No bony destructive lesion is seen. JOINTS:The ankle mortise is normally aligned. Mild degenerative changes at the tibiotalar joint. D egenerative changes also noted in the tarsal and tarsometatarsal regions. SOFT TISSUE: Swelling, greater over the lateral malleolus. IMPRESSION: Stable nondisplaced fracture of the lateral malleolus. No visible ankle mortise widening. DATA REPOSITORY: RADIATION DOSE DELIVERED:
== END 2024-08-31 11:17 | disposition home or self-care (01) ==
LOC: DIORS 11:17
PROVIDERS: PCP Nurse Practitioner Primary Care; Referring Provider Nurse Practitioner Primary Care; Visit Provider Physician Assistant
DX: S82.832A Other fracture of upper and lower end of left fibula, initial encounter for closed fracture (principal); W19.XXXA Unspecified fall, initial encounter
CPT/HCPCS: 99213; 73610

== ENCOUNTER 2024-09-21 15:27 | Outpatient (CLI) | payer MEDICARE, SELFPAY ==
--- NOTE | 2024-09-21 13:30 | DI.RAD_ITS ---
Exam(s) XR ANKLE LT COMPLETE EXAM: XR ANKLE LT COMPLETE CLINICAL HISTORY: F/U FRACTURE. TECHNIQUE: 2D digital imaging was performed. COMPARISON: CR XR ANKLE LT COMPLETE from 08/31/2024 FINDINGS: 3 views Again noted is the nondisplaced oblique fracture in the distal fibula lateral malleolus region with f racture line extending to the ankle mortise level. There is generalized osteopenia but no obvious os seous lesions. Fracture line is still evident. No widening of the ankle mortise evident on these no nstress views. Talar dome appears unremarkable. Posteriorly there is some calcification associated with the upper aspect of fracture line as seen on the lateral view. Possibly related to calcificatio n in a small adjacent osseous hematoma at this level or possibly related to some callus formation. Moderate size inferior calcaneal spur again noted as is an enthesophyte on the posterior calcaneus Ac hilles insertion site. IMPRESSION: Fracture line still visible in the distal fibula. No displacement. DATA REPOSITORY: RADIATION DOSE DELIVERED:
== END 2024-09-21 15:28 | disposition home or self-care (01) ==
LOC: DIORS 15:27
PROVIDERS: PCP Nurse Practitioner Primary Care; Referring Provider Nurse Practitioner Primary Care; Visit Provider Student in an Organized Health Care Education/Training Program
DX: S82.832D Other fracture of upper and lower end of left fibula, subsequent encounter for closed fracture with routine healing (principal); X58.XXXD Exposure to other specified factors, subsequent encounter
CPT/HCPCS: 99213; 73610

== ENCOUNTER 2024-11-03 16:02 | Outpatient (CLI) | payer MEDICARE, SELFPAY ==
--- NOTE | 2024-11-03 09:00 | DI.RAD_ITS ---
Exam(s) XR ANKLE LT COMPLETE EXAM: XR ANKLE LT COMPLETE CLINICAL HISTORY: F/U FRACTURE TECHNIQUE: 2D digital imaging was performed. Three views. COMPARISON: CR XR Ankle Complete 3+ Views Left from 08/19/2024 CR XR ANKLE LT COMPLETE from 08/31/2024 CR XR ANKLE LT COMPLETE from 09/21/2024 FINDINGS: BONES: Continued healing of previously noted lateral malleolar fracture. Increased callus formation. No acute fracture is present. No bony destructive lesion is seen. Heel spurs again noted. JOINTS:The ankle mortise is normally aligned. SOFT TISSUE: Some swelling remains present. Vascular calcifications. IMPRESSION: Continued healing of lateral malleolar fracture. DATA REPOSITORY: RADIATION DOSE DELIVERED:
== END 2024-11-03 16:03 | disposition home or self-care (01) ==
LOC: DIORS 16:03
PROVIDERS: PCP Nurse Practitioner Family; Referring Provider Nurse Practitioner Family; Visit Provider Physician Assistant
DX: S82.832D Other fracture of upper and lower end of left fibula, subsequent encounter for closed fracture with routine healing (principal); X58.XXXD Exposure to other specified factors, subsequent encounter
CPT/HCPCS: 99213; 73610

== ENCOUNTER 2024-12-31 01:04 | Emergency (ER) | payer MEDICARE, SELFPAY ==
[2024-12-31] VITALS (22 sets, daily range): BP systolic 140–180; BP diastolic 66–88; PULSE 64–96; RESP 15–26; TEMP 36.7; O2SAT 93–97
--- NOTE | 2024-12-31 01:00 | DI.CT_ITS ---
Exam(s) CT HEAD CERVICAL SPINE WO EXAM: CT HEAD CERVICAL SPINE WO CLINICAL HISTORY: fall w head injury/neck pain. TECHNIQUE: Imaging Protocol: Axial computed tomography images with coronal and sagittal reformatted images were created and reviewed COMPARISON: CT CT HEAD WO from 06/08/2024 CR XR CHEST 2V PA LATERAL from 06/08/2024 FINDINGS: Head CT Ventricles and Extra axial spaces: Normal in size and morphology for the patient's age. Hemorrhage: Localized subarachnoid hemorrhage noted along the sulci of the posterior right frontal lo be close to the vertex. Largest focus measures 16 x 5 millimeters. A trace amount of subarachnoid h emorrhage noted within the sulci of the left frontal lobe. Cerebral parenchyma: No evidence of mass or acute infarct. Mild atrophy. Mild white matter changes of small vessel disease. Midline shift: None. Brainstem/Cerebellum: Normal. Calvarium: Normal. Visualized Paranasal sinuses/Mastoids: Clear opacification of few left ethmoid sinuses. Soft tissues: posterior scalp laceration. Cervical Spine CT BONES: Vertebral body heights are maintained. Alignment is normal. There tis mild anterior wedging of the T1 vertebral body. No acute fracture lines are identified. Advanced degenerative disc changes and facet degenerative changes are seen . SOFT TISSUES: No paraspinal hematoma. The airway appears intact. IMPRESSION: Head CT: Subarachnoid hemorrhage noted in the bilateral posterior high frontal regions, right greater than left. C-spine CT: Degenerative changes, no acute abnormality. There is mild anterior wedging of the T1 vert ebral body without visible acute fracture lines. RADIATION DOSE DELIVERED: 1,070.43mGy.cm Total DLP DATA REPOSITORY: All CT scans at this facility are submitted to the National Radiology Data Registry (NRDR) Dose Index Registry (DIR) with the [employer] ([employer]). RADIATION OPTIMIZATION: All CT scans at this facility use at least one of these dose optimization te chniques: automated exposure control; mA and/or kV adjustment per patient size (includes targeted exa ms where dose is matched to clinical indication); or iterative reconstruction.
--- NOTE | 2024-12-31 01:09 | W.ED.GENAD ---
Discharge Plan Disposition Patient Disposition: Transfer-Acute Inpatient Care Specific Acute Inpt Facility: [facility] Condition: Stable Discharge Details Clinical Impression: Traumatic subarachnoid hemorrhage, Occipital scalp laceration, Anticoagulated on apixaban Primary Care Provider: Imelda Tinsley ED Provider: Jonah Krishna [place] Meds and New Rx's Prescriptions: No Action atorvastatin 20 mg Tablet 20 mg PO DAILY Eliquis 5 mg Tablet 2.5 mg PO BID aspirin 81 mg capsule 81 mg PO DAILY docusate sodium 100 mg capsule 100 mg PO Q3W cholecalciferol (vitamin D3) [Vitamin D3] 125 mcg (5,000 unit) tablet 125 mcg PO DAILY calcium carbonate [Calcium Antacid] 200 mg calcium (500 mg) tablet,chewable 200 mg PO BID Refresh Relieva 0.5-0.9 % drops 1 drp ophthalmic (eye) BID acetaminophen 500 mg capsule 500 mg PO HS Benefiber Sugar Free (dextrin) 3 gram/4 gram powder 1.5 g PO DAILY Rx Instructions: mix into at least 4 oz water or juice before administering cranberry extract 425 mg capsule 425 mg PO DAILY Rx Instructions: administer with a meal PreserVision AREDS-2 250-90-40-1 mg tablet,chewable 1 tab PO ONCE HPI General Mode of arrival: EMS. Date/Time Provider Initiated Documentation: 12/31/24 01:09. Limitations to Documentation: no limitations. Information obtained by: patient and RN notes reviewed. HPI Narrative: Patient presents to ED status post fall. Patient reports trying to go to the bathroom. She is not exactly sure what happened but she ended up falling and striking her head. She denies loss of consciousness. She denies syncope. She states she might of gotten a little lightheaded a week but is not sure. She is on anticoagulation for atrial fibrillation. She sustained a laceration to the back of her head. Denies any neck pain. Denies any chest pain, shortness of breath, abdominal pain, back pain, extremity pain. Denies any recent illnesses. Has had no fever, cough, vomiting, diarrhea, urinary symptoms. Related Data Home Medications ?Medication ?Instructions ?Recorded ?Confirmed apixaban 5 mg tablet (Eliquis) 2.5 mg PO BID 05/23/22 12/31/24 atorvastatin 20 mg tablet 20 mg PO DAILY 05/23/22 12/31/24 aspirin 81 mg capsule 81 mg PO DAILY 01/15/24 12/31/24 cholecalciferol (vitamin D3) 125 125 mcg PO DAILY 01/15/24 12/31/24 mcg (5,000 unit) tablet (Vitamin D3) docusate sodium 100 mg capsule 100 mg PO Q3W 01/15/24 12/31/24 acetaminophen 500 mg capsule 500 mg PO HS 12/31/24 12/31/24 calcium carbonate (Calcium Antacid) 200 mg PO BID 12/31/24 12/31/24 carboxymethylcellulose 0.5 1 drp ophthalmic (eye) BID 12/31/24 12/31/24 %-glycerin 0.9 % eye drops (Refresh Relieva) cranberry extract 425 mg capsule 425 mg PO DAILY 12/31/24 12/31/24 vit C 250 mg-E 90 mg-zinc 40 1 tab PO ONCE 12/31/24 12/31/24 mg-copper 1 [id number] chew tablet (PreserVision AREDS-2) wheat dextrin 3 gram/4 gram oral 1.5 g PO DAILY 12/31/24 12/31/24 powder (Benefiber Sugar Free (dextrin)) Allergies Allergy/AdvReac Type Severity Reaction Status Date / Time No Known Allergies Allergy Verified 12/31/24 01:11 General Stated Complaint: Fall/Non TraumaCriteria CAL: 3 Exam Narrative Exam Narrative: Const: WDWN elderly female in NAD. VS per triage. HEENT: NC. Normal facial exam. Laceration to the occipital scalp about 4cm in length. Neck: Supple. Trachea midline. Mild tenderness upper cervical spine. Lungs: Normal respiratory effort. Lungs are clear. Chest wall NT. Cor: RRR without murmur. Good radial pulses. GI: Soft/ND/NT. Back: NT spine. Neuro: A+O x 3. Normal speech, mentation. Cranial nerves II - XII grossly intact. No gross motor or sensory deficit. Ext: No C/C/E. No deformity or tenderness. Course Vital Signs Vital signs: Vital Signs Temperature 98.0 F 12/31/24 01:05 Pulse 87 12/31/24 01:05 Respiratory Rate 20 12/31/24 01:05 Blood Pressure 157/77 H 12/31/24 01:05 Pulse Oximetry 97 12/31/24 01:05 Temperature 98.0 F 12/31/24 01:05 Pulse 87 12/31/24 01:05 Respiratory Rate 20 12/31/24 01:05 Blood Pressure 157/77 H 12/31/24 01:05 Blood Pressure Position Sitting 12/31/24 01:05 Pulse Oximetry 97 12/31/24 01:05 Oxygen Delivery Method Room Air 12/31/24 01:05 Oxygen Flow Rate 0 12/31/24 01:05 Pain Level 3 12/31/24 01:05 Procedure Laceration Laceration 1: Date of Procedure: 12/31/24 Time of procedure: 02:30 Provider that performed the procedure: Jonah Krishna Patient Consented: Verbally Site: scalp Description: linear Depth: simple, single layer Local anesthetic: Lidocaine 1% and with Epi Amount of anesthesia used (mL): 7 Pre-repair:: wound explored and irrigated extensively Skin layer closed with: caty Number of sutures:: 8 Complications: None Procedure Description/Note: Galea was involved and two 4-0 vicryl sutures were placed to bring back together. Medical Decision Making Patient presenting to ED status post fall with head injury and scalp laceration. She denies loss of consciousness. She is on anticoagulation. Denies headache. Denies neck pain but does have some mild tenderness to the upper cervical spine on palpation. Otherwise exam is unremarkable. She denies syncope or fainting and denies LOC with head strike. She is not exactly sure how she fell, may have gotten a little lightheaded and weak. Because of this we will obtain EKG, basic labs and urinalysis. Will obtain CT head and cervical spine. Will plan irrigation and cleaning of wound and repair with caty. Patient CBC and BMP are unremarkable. Urinalysis negative for infection. Laceration was irrigated with copious amounts of saline. It was anesthetized with lidocaine with epinephrine which helped control bleeding. It was further irrigated and clot removed. Galea was involved and this was repaired with two 4-0 Vicryl sutures. Scalp laceration then repaired with caty. Received a call during the middle of the procedure from radiology with preliminary read showing subarachnoid hemorrhage. Cervical spine negative though indeterminate compression fracture of T1. Because of the subarachnoid hemorrhage and the fact that she is anticoagulated a call was placed to [facility]. She was ordered for 2000 units of Kcentra. Her mental status remains normal with a GCS of 15. Case discussed with trauma, Dr. Ruelas, at [facility]. Patient is excepted for ED to ED transfer for a trauma consult on arrival at [facility]. Because of the indeterminate T1 compression fracture Walker collar applied and patient will be transported in C-spine precautions. Portable chest x-ray was obtained and per my read there is no acute process identified. Patient and daughter made aware of findings and need for transfer. Both consent to same. She will be sent by ambulance with senior principal architect. Of note patient is DNR but is not DNI. Tetanus was updated prior to transfer. Lab Data Lab results reviewed: Yes I reviewed the patient's lab results. Lab results narrative: see [facility] ECG Data Attestation: I personally reviewed and interpreted this ECG (s) as follows: Prior ECG tracings: available for review Interpretation: see MDM/EKG [facility] All Active Problems (Updated 12/31/24 @ 03:45 by Jonah Krishna MD) Anticoagulated on apixaban (Acute) Occipital scalp laceration (Acute) Traumatic subarachnoid hemorrhage (Acute) Medical History Hyperlipidemia Atrial fibrillation Surgical History S/P cataract surgery S/P hysterectomy Social History Smoking/Tobacco Use Status: Former Tobacco Use Smoking risk assessment performed?: Yes Alcohol Intake: never Drug use: Never Substance use type: does not use Housing: assisted living facility Do you feel safe at home: Yes Do you feel safe in your relationship?: Yes
--- NOTE | 2024-12-31 01:15 | RT.EKG_ITS ---
APPROVED REPORT Exam: Resting ECG Reason for Exam: weakness, fall Patient Location: E HR:91 bpm ECG Measurements Heart Rate 91 AX[place] [id number] P [id number] QRSd 83 QRS -11 QT 347 T 6 QTc 427 Conclusion Atrial fibrillation...? atrial activity Ventricular premature complex...V complex w/ short R-R interval Low voltage, precordial leads...precordial leads <1.0mV There are no significant changes compared to prior EKG performed on 06/08/2024 at 15:41.
[2024-12-31 01:40] LABS: HCT 43.9 % (36.0-46.0); HGB 14.2 g/dL (11.2-15.7); MCH 31.3 pg (27.0-33.0); MCHC 32.3 % (32.0-36.0); MCV 97 fL (80-95); MPV 9.6 fL (8.0-11.0); Platelet Count 222 10^3/uL (130-400); RBC 4.53 10^6/uL (3.93-5.22); RDW 14.4 % (11.7-14.6); RDW-SD 51.6 fL; WBC 5.92 10^3/uL (4.4-10.8)
[2024-12-31 01:51] LABS: Anion Gap 8.4 mmol/L (3-11); BUN 20 mg/dL (7-18); CO2 27.6 mmol/L (21.0-32.0); CREATININE 0.9 mg/dL (0.55-1.02); Calcium 9.7 mg/dL (8.5-10.1); Chloride 101 mmol/L (98-107); Estimated GFR 63.43 (mL/min/1.73m2); Glucose 137 mg/dL (74-106); Potassium 4.6 mmol/L (3.5-5.1); Sodium 137 mmol/L (136-145)
[2024-12-31 01:59] LABS: Bilirubin Negative (Negative); Blood Trace-intact (Negative); Clarity Clear (Clear); Glucose Negative (Negative); Ketones Negative (Negative); Leukocyte Esterase Small (Negative); Nitrite Negative (Negative); Urobilinogen 0.2 mg/dL (Up to 0.2)
[2024-12-31 02:03] LABS: Bacteria Rare HPF (Negative); C & S Indicated? No; Casts Negative LPF (Negative); Crystals Negative HPF (Negative); Epithelial Cells Few HPF (Negative); Mucus Negative (Negative)
[2024-12-31] MEDS: Hydrogen Peroxide 3% 480 ML BTL (02:32)
[2024-12-31] MEDS: Lidocaine 1% Multi-Dose W/EPI 1/100,000 10 ML VIAL IJ (02:32)
--- NOTE | 2024-12-31 02:39 | DI.VRAD_ITS ---
Addendum created by Karlie Shannon MD on 12/31/2024 2:40:37 AM EDT: THIS REPORT CONTAINS FINDINGS THAT MAY BE CRITICAL TO PATIENT CARE. The findings were verbally communicated via telephone conference with GREG COHEN at 2:40 AM EDT on 12/31/2024. The findings were acknowledged and understood. Initial report created on 12/31/2024 2:38:34 AM EDT: PROCEDURE INFORMATION: Exam: CT Head Without Contrast Exam date and time: 12/31/2024 1:43 AM Age: 84 years old Clinical indication: Injury or trauma; Blunt trauma (contusions or hematomas); Consciousness not specified; Injury date: 12/31/24; Injury details: Fall wih head injury, neck pain TECHNIQUE: Imaging protocol: Computed tomography of the head without contrast. Radiation optimization: All CT scans at this facility use at least one of these dose optimization techniques: automated exposure control; mA and/or kV adjustment per patient size (includes targeted exams where dose is matched to clinical indication); or iterative reconstruction. COMPARISON: CT HEAD WO 06/08/2024 5:08 PM FINDINGS: Brain: There is subarachnoid hemorrhage in the right posterior frontal lobe at the vertex. Trace subarachnoid hemorrhage in the left frontal lobe. Generalized parenchymal volume loss. Chronic ischemic changes are noted. Cerebral ventricles: No disproportionate ventriculomegaly. Paranasal sinuses: Partially opacified ethmoid air cells. Mastoid air cells: No mastoid effusion. Bones: No acute cranial vault fracture seen. Soft tissues: Posterior scalp laceration/hematoma. Vasculature: Arterial calcifications. IMPRESSION: 1. Subarachnoid hemorrhage as described above. 2. Additional studies dictated separately. PROCEDURE INFORMATION: Exam: CT Cervical Spine Without Contrast Exam date and time: 12/31/2024 1:43 AM Age: 84 years old Clinical indication: Injury or trauma; Blunt trauma (contusions or hematomas); Consciousness not specified; Injury date: 12/31/24; Injury details: Fall wih head injury, neck pain TECHNIQUE: Imaging protocol: Computed tomography of the cervical spine without contrast. Radiation optimization: All CT scans at this facility use at least one of these dose optimization techniques: automated exposure control; mA and/or kV adjustment per patient size (includes targeted exams where dose is matched to clinical indication); or iterative reconstruction. COMPARISON: No relevant prior studies are available for comparison. FINDINGS: Limitations: Mild motion artifact. Bones: No acute cervical spine fracture identified. Multilevel degenerative changes. At C2-C3 there is mild left foraminal narrowing. At C3-C4 there is mild right and moderate left foraminal narrowing. At C4-C5 there is mild left foraminal narrowing. At C5-C6 there is moderate right and marked left foraminal narrowing and moderate canal narrowing. At C6-C7 there is mild right and moderate left foraminal narrowing and mild canal narrowing. Straightening of the normal cervical lordosis may reflect positioning or muscle spasm; correlate clinically. Age indeterminate compression deformity at T1. Lungs: Scarring at the lung apices. Lymph nodes: Bilateral cervical lymph nodes. Vasculature: Arterial calcifications. Soft tissues: See Bones finding. IMPRESSION: 1. No acute cervical spine fracture seen. 2. Age indeterminate compression deformity at T1. Clinical correlation and comparison with prior studies advised. 3. Additional studies dictated separately. Dictated and Authenticated by: Karlie Shannon MD. Orderin Tomi Mckenzie MD
[2024-12-31] MEDS: HUMAN PROTHROM. CMPX. 2,000 UNIT in EMPTY EVACUATED CONTAINER 1 EACH 360 UNIT IV (03:10)
--- NOTE | 2024-12-31 03:15 | DI.RAD_ITS ---
Exam(s) XR PORTABLE CHEST AP EXAM: XR PORTABLE CHEST AP CLINICAL HISTORY: trauma/fall TECHNIQUE: 2D digital imaging was performed. COMPARISON: CR XR CHEST 2V PA LATERAL from 06/08/2024 FINDINGS: LUNGS: Lung apices are partially obscured. The lungs appear clear. No pleural abnormality seen. HEART: Normal size. AORTA: Normal diameter. BONES: Unremarkable for age. Soft tissues: Unremarkable. IMPRESSION: No acute findings. DATA REPOSITORY: RADIATION DOSE DELIVERED:
--- NOTE | 2024-12-31 03:18 | NUR.NOTE ---
2000 units of K centra ordered for subarachnoid bleed. KCentra reconstituted per talent advisor's instructions under aseptic technique. Dose and drug verified by second RN Susan Galindo. Pt signed consent form and is tolerating infusion well.
--- NOTE | 2024-12-31 03:39 | DI.VRAD_ITS ---
PROCEDURE INFORMATION: Exam: XR Chest Exam date and time: 12/31/2024 3:34 AM Age: 84 years old Clinical indication: Injury or trauma; Blunt trauma (contusions or hematomas); Injury date: 12/31/24; Injury details: Trauma/fall TECHNIQUE: Imaging protocol: Radiologic exam of the chest. Views: 1 view. COMPARISON: CR XR CHEST 2V PA LATERAL 06/08/2024 5:22 PM FINDINGS: Lungs: Minimal bibasilar atelectasis/scarring. Pleural spaces: No large pleural effusion seen. Heart/Mediastinum: No cardiomegaly. Bones/joints: No acute abnormality. IMPRESSION: No acute findings to explain reported symptoms. Dictated and Authenticated by: Karlie Shannon MD. Orderin Tomi Mckenzie MD
[2024-12-31] MEDS: Tetanus & Diphtheria Tox,ADULT 0.5 ML VIAL IM (03:54)
--- NOTE | 2025-01-03 18:05 | NUR.NOTE ---
Accessed chart to get the discharge diagnosis for [facility] billing purposes and to print a facesheet for the same purpose. Nursing Note:
== END 2024-12-31 04:25 | disposition short-term general hospital (02) ==
PROVIDERS: Emergency Provider Emergency Medicine; PCP Nurse Practitioner Family
DX: S06.6X0A Traumatic subarachnoid hemorrhage without loss of consciousness, initial encounter (principal); S01.01XA Laceration without foreign body of scalp, initial encounter; E78.5 Hyperlipidemia, unspecified; I48.91 Unspecified atrial fibrillation; Z79.01 Long term (current) use of anticoagulants; Z79.82 Long term (current) use of aspirin; Z87.891 Personal history of nicotine dependence; W18.39XA Other fall on same level, initial encounter; Y93.01 Activity, walking, marching and hiking; Y92.018 Other place in single-family (private) house as the place of occurrence of the external cause; Z23 Encounter for immunization
CPT/HCPCS: 12002; 80048; 85027; 90471; 90714; 93005; 96365; 99285; 70450; 71045; 72125; 81003; 81015; 93010; J2004; J7168

== ENCOUNTER 2025-06-08 08:21 | Outpatient (REF) | payer MEDICARE, SELFPAY ==
[2025-06-08 10:34] LABS: Calculated LDL 51 mg/dL (<100); Cholesterol 121 mg/dL (<200); HDL Cholesterol 49 mg/dL (>or=50); Triglyceride 106 mg/dL (<150)
== END 2025-06-08 08:22 | disposition home or self-care (01) ==
LOC: LBN 08:21
PROVIDERS: PCP Nurse Practitioner Family; Visit Provider Nurse Practitioner Family
DX: E78.00 Pure hypercholesterolemia, unspecified (principal)
CPT/HCPCS: 80061